=== PATIENT | female | born 1995 | race Caucasian/White ===

== ENCOUNTER 2017-05-28 21:37 | Emergency (ER) | payer OTHER ==
[~2017-05-28] VITALS: Ht 154.9 cm; Wt 86.2 kg
[~2017-05-28 21:37] MED LIST: IBUP-974 PO
[2017-05-28 22:10] VITALS: BP 136/84
--- NOTE | 2017-05-28 22:51 | NUR ---
PT TAKEN TO BED 4
--- NOTE | 2017-05-28 22:55 | NUR ---
PATIENT IS A 22 Y/O FEMALE WHO PRESENTS TO THE ED C/O ABD PAIN. PT STATES, "I CAME HERE ABOUT 2 DAYS AGO AND I AM STILL HAVING PAIN." PT REPORTS 10/10 SHARP PAIN THAT RADIATES TO THE WAIST. PT AAOX4, RR EVEN/UNLABORED. AMBULATED TO BED WITH STEADY GAIT, SKIN IS COOL/DRY. PT REPOSITIONED FOR COMFORT, BED IN LOWEST POSITION. ER MD DR. MULLEN NOTIFIED. WILL CONTINUE TO MONITOR.
--- NOTE | 2017-05-28 23:10 | NUR ---
Patient being evaluated by Dr. Phan at bedside.
--- NOTE | 2017-05-28 23:10 | NUR ---
Dr. Phan evaluating patient at bedside.
[2017-05-28] MEDS ORDERED: DICYCLOMINE HCL LIQUID 20 MG, ALUMINUM HYD/MAG/SIMETHICONE 30 ML, LIDOCAINE VISCOUS 2% ... PO ONE ×3 (23:20)
[2017-05-28 23:47] LABS: BILIRUBIN,URINE NEGATIVE (NEGATIVE); BLOOD, URINE NEGATIVE (NEGATIVE); COLOR,URINE YELLOW (YELLOW); LEUKOCYTE ESTERASE ,URINE NEGATIVE (NEGATIVE); NITRITE, URINE NEGATIVE (NEGATIVE); PH,URINE 6.5 (5.0-9.0); UGLUCOSE NEGATIVE (NEGATIVE)
[2017-05-28 23:59] LABS: APPEARANCE,URINE SLIGHTLY HAZY (CLEAR)
[2017-05-28 23:59] LABS: BASOPHILS # (AUTO) 0.1 K/uL (0.00-0.22); BASOPHILS % (AUTO) 1.5 % (0.0-2.0); EOSINOPHILS % (AUTO) 0.5 % (0.0-4.0); HEMATOCRIT 35.7 % (36-48); HEMOGLOBIN 11.7 g/dL (12.0-16.0); LYMPHOCYTES # (AUTO) 1.5 K/uL (2.5-16.5); LYMPHOCYTES % (AUTO) 19.3 % (20.5-51.1); MEAN CORPUSCULAR HEMOGLOBIN 23 pg (27-31); MEAN CORPUSCULAR HGB CONC 33 g/dL (33-37); MEAN CORPUSCULAR VOLUME 71 fL (80-94); MONOCYTES # (AUTO) 0.4 K/uL (0.8-1.0); MONOCYTES % (AUTO) 5.1 % (1.7-9.3); NEUTROPHILS # (AUTO) 5.6 K/uL (1.8-7.7); NEUTROPHILS % (AUTO) 73.6 % (42.2-75.2); PLATELET COUNT (AUTO) 371 K/uL (140-450); RED BLOOD CELL COUNT(AUTO) 5.07 MIL/uL (4.20-5.40); RED CELL DISTRIBUTION WIDTH 16.2 % (11.6-13.7); WHITE BLOOD COUNT (AUTO) 7.6 K/uL (4.8-10.8)
[2017-05-29] LABS: RBC,URINE 0-5 (RARE) /HPF (0-5); WBC,URINE 0-5 (RARE) /HPF (0-5)
[2017-05-29 00:01] LABS: ALBUMIN 3.9 g/dL (3.4-5.0); ANION GAP 12.3 (8-16); CARBON DIOXIDE 28.5 mmol/L (21-32); CREATININE 0.7 mg/dL (0.6-1.3); POTASSIUM 3.8 mmol/L (3.5-5.1); TOTAL BILIRUBIN 0.1 mg/dL (0.0-1.0)
[2017-05-29 00:30] VITALS: BP 131/82
--- NOTE | 2017-05-29 00:30 | NUR ---
Note thelma in EDM - 05/29/17 at 0039 by MEDELVIV Patient discharged with v/s stable. Written and verbal after care instructions given and explained. Patient alert, oriented and verbalized understanding of instructions. Ambulatory with steady gait. All questions addressed prior to discharge. ID band removed. Patient advised to follow up with PMD. Rx of NAPROSYN 500MG & BENTYL 20MG given. Patient educated on indication of medication including possible reaction and side effects. Opportunity to ask questions provided and answered.
[2017-05-29] MEDS ORDERED: KETOROLAC 30 MG/ML VIAL IM ONE (00:35)
--- NOTE | 2017-05-29 00:55 | NUR ---
Patient discharged with v/s stable. Written and verbal after care instructions given and explained. Patient alert, oriented and verbalized understanding of instructions. Ambulatory with steady gait. All questions addressed prior to discharge. ID band removed. Patient advised to follow up with PMD. Rx of NAPROSYN 500 MG & BENTYL 20MG given. Patient educated on indication of medication including possible reaction and side effects. Opportunity to ask questions provided and answered.
== END 2017-05-29 00:55 | disposition home or self-care (01) ==
LOC: MED 21:37
DX: R10.10 Upper abdominal pain, unspecified (principal); M54.5 Low back pain
CPT/HCPCS: 36415; 74176; 80053; 81001; 81025; 83690; 85025; 87086; 96372; 99285; J1885

== ENCOUNTER 2018-09-04 19:42 | Emergency (ER) | payer OTHER ==
[~2018-09-04] VITALS: Ht 154.9 cm; Wt 94.8 kg
[2018-09-04 19:45] VITALS: BP 141/82
--- NOTE | 2018-09-04 19:52 | NUR ---
PT TAKEN TO BED 3
--- NOTE | 2018-09-04 19:55 | NUR ---
CAME IN WITH C/O COUGH, FEVER, HEADACHE AND SORETHROAT SINCE YESTERDAY WITH NUMBNESS ON HER FINGERS.
--- NOTE | 2018-09-04 20:53 | NUR ---
Dr. Arcos evaluating patient at bedside.
[2018-09-04] MEDS ORDERED: KETOROLAC 30 MG/ML VIAL IVP ONE (21:00)
[2018-09-04] MEDS ORDERED: NACL 0.9% 1,000 ML IV ONE (21:00)
[2018-09-04 22:18] VITALS: BP 121/60
--- NOTE | 2018-09-04 22:18 | NUR ---
Patient discharged with v/s stable. Written and verbal after care instructions given and explained. Patient alert, oriented and verbalized understanding of instructions. Ambulatory with steady gait. All questions addressed prior to discharge. ID band removed. Patient advised to follow up with PMD. Rx of PREDNISONE, MOTRIN, AND TAMIFLU given. Patient educated on indication of medication including possible reaction and side effects. Opportunity to ask questions provided and answered.
== END 2018-09-04 22:18 | disposition home or self-care (01) ==
LOC: MED 19:42
DX: R05 Cough (principal); J02.9 Acute pharyngitis, unspecified; R50.9 Fever, unspecified; R51 Headache; R07.9 Chest pain, unspecified; I10 Essential (primary) hypertension; Z79.899 Other long term (current) drug therapy
CPT/HCPCS: 96374; 99283; J1885; J7030

== ENCOUNTER 2019-05-07 18:17 | Emergency (ER) | payer OTHER ==
[~2019-05-07] VITALS: Ht 154.9 cm; Wt 81.6 kg
[2019-05-07 18:34] VITALS: BP 134/78
[2019-05-07] MEDS ORDERED: IBUPROFEN 600 MG TAB PO ONE (19:40)
[2019-05-07] MEDS ORDERED: ACETAMINOPHEN 325 MG TAB PO ONE (19:40)
[2019-05-07 20:41] VITALS: BP 134/78
== END 2019-05-07 20:41 | disposition home or self-care (01) ==
LOC: MED 18:17
DX: M25.561 Pain in right knee (principal); I10 Essential (primary) hypertension; Z88.6 Allergy status to analgesic agent; W18.39XA Other fall on same level, initial encounter; Y92.89 Other specified places as the place of occurrence of the external cause; Y93.89 Activity, other specified; Y99.8 Other external cause status
CPT/HCPCS: 73562; 99283; Q0092

== ENCOUNTER 2024-05-07 17:38 | Emergency (ER) | payer OTHER ==
[~2024-05-07] VITALS: Ht 154.9 cm; Wt 85.4 kg
[2024-05-07 17:51] VITALS: BP 150/88; PULSE 131; RESP 18; TEMP 98.2; O2SAT 98
[2024-05-07] MEDS: LIDOCAINE MPF 1% 10 MG/ML VIAL INJ ONE (18:20)
[2024-05-07] MEDS: HYDROcodone/APAP 5/325 MG 1 TAB TAB PO ONE (18:22)
[2024-05-07 19:17] LABS: BASOPHILS % (AUTO) 0.3 % (0.0-2.0); EOSINOPHILS # (AUTO) 0.1 K/uL (0-0.4); EOSINOPHILS % (AUTO) 0.7 % (0.0-4.0); HEMATOCRIT 30.4 % (36-48); HEMOGLOBIN 9.7 g/dL (12.0-16.0); LYMPHOCYTES # (AUTO) 1.7 K/uL (2.5-16.5); LYMPHOCYTES % (AUTO) 17.4 % (20.5-51.1); MEAN CORPUSCULAR HEMOGLOBIN 21 pg (27-31); MEAN CORPUSCULAR HGB CONC 32 g/dL (33-37); MEAN CORPUSCULAR VOLUME 67.1 fL (80-94); MONOCYTES % (AUTO) 9.9 % (1.7-9.3); NEUTROPHILS # (AUTO) 7.2 K/uL (1.8-7.7); NEUTROPHILS % (AUTO) 71.7 % (42.2-75.2); PLATELET COUNT (AUTO) 421 K/uL (140-450); RED BLOOD CELL COUNT(AUTO) 4.53 MIL/uL (4.20-5.40); WHITE BLOOD COUNT (AUTO) 10.1 K/uL (4.8-10.8)
[2024-05-07 19:34] LABS: ANION GAP 9.7 (8-16); CALCIUM 8.6 mg/dL (8.5-10.1); CARBON DIOXIDE 29.1 mmol/L (21-32); CREATININE 0.7 mg/dL (0.6-1.3); POTASSIUM 3.8 mmol/L (3.5-5.1)
[2024-05-07] MEDS: NACL 0.9% 1,000 ML IV ONE (19:42)
[2024-05-07] MEDS ORDERED: SULF-59 PO (19:53)
[2024-05-07] MEDS ORDERED: CEPH-588 PO (19:53)
[2024-05-07] MEDS ORDERED: ACET-8905 PO (19:53)
[2024-05-07 20:55] VITALS: BP 150/88; PULSE 131; RESP 18; TEMP 98.2; O2SAT 98
[2024-05-07] MEDS ORDERED: IBUP-2213 PO (20:55)
== END 2024-05-07 20:54 | disposition home or self-care (01) ==
LOC: MED 17:38
DX: L02.31 Cutaneous abscess of buttock (principal); E11.9 Type 2 diabetes mellitus without complications; I10 Essential (primary) hypertension; Z79.899 Other long term (current) drug therapy
CPT/HCPCS: 10060; 36415; 80048; 82948; 85025; 96360; 99284; J2003; J7030

== ENCOUNTER 2024-05-09 14:39 | Emergency (ER) | payer BC, OTHER ==
[~2024-05-09] VITALS: Ht 154.9 cm; Wt 86.4 kg
[~2024-05-09 14:39] MED LIST changes: +ACET-8905 PO; +CEPH-588 PO; +IBUP-2213 PO; +SULF-59 PO
[2024-05-09 15:16] VITALS: BP 102/85; PULSE 91; RESP 16; TEMP 98; O2SAT 100
== END 2024-05-09 16:39 | disposition home or self-care (01) ==
LOC: MED 14:39
DX: L02.31 Cutaneous abscess of buttock (principal); I10 Essential (primary) hypertension; E11.9 Type 2 diabetes mellitus without complications; Z79.899 Other long term (current) drug therapy
CPT/HCPCS: 99284

== ENCOUNTER 2024-05-16 18:50 | Emergency (ER) | payer BC, OTHER ==
[~2024-05-16] VITALS: Ht 160 cm; Wt 87.1 kg
[2024-05-16 19:10] VITALS: BP 145/74; PULSE 89; RESP 16; TEMP 97.6; O2SAT 99
[2024-05-16] MEDS ORDERED: LORA-1048 PO (20:14)
[2024-05-16 20:23] VITALS: BP 145/74; PULSE 89; RESP 16; TEMP 97.6
[2024-05-16 20:24] VITALS: O2SAT 99
== END 2024-05-16 20:23 | disposition home or self-care (01) ==
LOC: MED 18:50
DX: L29.9 Pruritus, unspecified (principal); R21 Rash and other nonspecific skin eruption; E11.9 Type 2 diabetes mellitus without complications; I10 Essential (primary) hypertension; Z79.899 Other long term (current) drug therapy
CPT/HCPCS: 99282